=== PATIENT | female | born 1990 | race African-American/Black ===

== ENCOUNTER 2019-05-03 08:38 | Emergency (ER) | payer SELFPAY ==
[~2019-05-03] VITALS: Ht 170.2 cm; Wt 81.6 kg
[2019-05-03 08:47] VITALS: BP 119/78
--- NOTE | 2019-05-03 09:42 | Emergency Room Report ---
History of Present Illness General Chief Complaint: Lower Extremity Injury Source: Patient Present Illness HPI Patient presents with complaints of traumatic injury to the left large toe reports that she hit The toe on a solid object this morning Denies any ankle pain denies any knee pain she has significant discomfort to the toe itself 5 out of 10 pain Denies any fall or other trauma Allergies: Coded Allergies: No Known Allergies (Unverified , 05/03/19) Patient History Past Medical History: see triage record Last Menstrual Period: 04/10/19 Reviewed Nursing Documentation: PMH: Agreed; PSxH: Agreed Nursing Documentation-PMH Past Medical History: No Stated History Review of Systems All Other Systems: negative except mentioned in HPI Physical Exam Vital Signs Date Time Temp Pulse Resp B/P (MAP) Pulse Ox O2 Delivery O2 Flow Rate FiO2 05/03/19 08:47 98.8 79 18 119/78 (92) 95 Room Air Sp02 EP Interpretation: reviewed, normal General Appearance: mild distress - in pain Head: normocephalic, atraumatic Eyes: bilateral eye PERRL, bilateral eye EOMI ENT: hearing grossly normal, EOM grossly intact Neck: supple Respiratory: lungs clear, no respiratory distress, no retraction Cardiovascular #1: regular rate, rhythm Gastrointestinal: non tender, soft Musculoskeletal: other - Swelling and trauma to the left large toe there is area of early avulsion to the lateral aspect of the large toenail Neurologic: alert Skin: other - as Above Lymphatic: no adenopathy Procedures Splinting Splinting : Consent: Verbal Location: Left large toe Hand-Made Type: Splint: Randall splint is applied to large toe with appropriate immobilization Pre-Proc Neuro Vasc Exam: normal Post-Proc Neuro Vasc Exam: normal Patient Tolerated: Well Complications: None Medical Decision Making Diagnostic Impression: Primary Impression: Toe contusion Additional Impression: Subungual hematoma ER Course Given the history and presentation multiple differentials and consideration X-ray imaging was obtained which does not show any acute process patient shows some signs of early subungual hematoma however There is a break on the edge of the nail and there is some bleeding already Patient had the foot provided with a randall splint and a postop shoe and will require close outpatient podiatry follow-up Other X-Ray Diagnostic Results Other X-Ray Diagnostic Results : X-Ray ordered: left foot # of Views/Limited Vs Complete: 3 View Indication: Pain EP Interpretation: Yes Interpretation: no dislocation, no soft tissue swelling, no fractures Impression: No acute disease Electronically Signed by: Krystal Tamez DO Last Vital Signs Date Time Temp Pulse Resp B/P (MAP) Pulse Ox O2 Delivery O2 Flow Rate FiO2 05/03/19 08:47 98.8 79 18 119/78 (92) 95 Room Air Status: improved Disposition: HOME, SELF-CARE Condition: Improved Scripts Acetaminophen With Codeine (T#3) (TYLENOL #3 TAB*) Y Tab 1 TAB ORAL Q8H PRN for For Pain, #10 TAB Prov: Krystal Tamez DO 05/03/19 Ibuprofen* (MOTRIN*) 600 Mg Tablet 600 MG ORAL Q8H PRN for For Pain, #20 TAB 0 Refills Prov: Krystal Tamez DO 05/03/19 Additional Instructions: Patient is provided with the discharge instructions notified to follow up with primary doctor in the next 2-3 days otherwise return to the er with any worsening symptoms. Please note that this report is being documented using [employer] technology. This can lead to erroneous entry secondary to incorrect interpretation by the dictating instrument. Krystal Tamez DO May 03, 2019 09:42
[2019-05-03] MEDS ORDERED: IBUPROFEN600 MG ORAL (10:04)
[2019-05-03] MEDS ORDERED: ACETAMINOPHEN-1 EAC1 ORAL (10:04)
[2019-05-03] MEDS ORDERED: Hydrogen Peroxide 473ml Bottle TOPIC ONE (10:15)
--- NOTE | 2019-05-03 11:05 | Diagnostic Imaging Report ---
Indications: Pain, trauma, left great toe pain Technique: 3 views of the left foot Comparison: None Findings: No acute fractures. No dislocations. Joint spaces are preserved. No radiopaque foreign body. Normal mineralization. Impression: No acute process
== END 2019-05-03 10:20 | disposition home or self-care (01) ==
LOC: EMR 10:00
DX: S91.202A Unspecified open wound of left great toe with damage to nail, initial encounter (principal); W22.8XXA Striking against or struck by other objects, initial encounter; Y92.9 Unspecified place or not applicable
CPT/HCPCS: 99283